=== PATIENT | female | born 2000 ===

== ENCOUNTER 2021-05-03 08:32 | Emergency (ER) | payer MEDICAID, SELFPAY ==
[2021-05-03 08:50] VITALS: BP 103/62; PULSE 67; RESP 17; TEMP 36.8; O2SAT 100; BMI 19.1
--- NOTE | 2021-05-03 08:52 | ED_ITS ---
HPI - General Adult General Chief complaint: Ear Problems Stated complaint: ear pain Time Seen by Provider: 05/03/21 08:35 Source: patient Mode of arrival: ambulatory Limitations: no limitations History of Present Illness HPI narrative: Patient comes emergency room complaining of left-sided ear pain and right ear itching. Symptoms have been ongoing for 1 week. Patient denies fever chills, no sore throat, no runny nose. Patient states 2 weeks ago she went to [place] Related Data Previous Rx's Medication Instructions Recorded acetic acid 3 drp OTIC (EAR) LEFT Q6H #15 ml 05/03/21 Allergies Allergy/AdvReac Type Severity Reaction Status Date / Time No Known Allergies Allergy Verified 05/03/21 08:54 [No Known Allergies*] Review of Systems Review of Systems: Constitutional : No Weight loss, No Fever, No Chills, No Night Sweats, No Fatigue, No Malaise ENT/Mouth : No Hearing loss, complaining of left-sided ear pain and right-sided ear itchiness, No Nasal Congestion, No Sinus Pain, No Hoarseness, No sore throat, No Rhinorrhea, No Swallowing Difficulty Eyes: No Eye Pain, No Swelling, No Redness, No Foreign Body, No Discharge, No Vision Changes Cardiovascular : No Chest Pain, No SOB, No Dyspnea on Exertion, No Orthopnea, No Edema, No Palpitations Respiratory : No Cough, No Sputum, No Wheezing, No Smoke Exposure, No Dyspnea Gastrointestinal : No Nausea, No Vomiting, No Diarrhea, No Constipation, No abdominal Pain, No Hematochezia, No Melena Genitourinary : no irregular bleeding, No Dysuria, No Urinary Frequency, No Hematuria, No Urinary Incontinence, No Urgency, No Flank Pain, No Urinary Flow Changes, No Hesitancy Musculoskeletal : No joint pain, No Myalgias, No Joint Swelling Skin : No Skin Lesions, No rash Neuro : No Weakness, No Numbness, No Paresthesias, No Loss of Consciousness, No Dizziness, No Headache Psych : No Anxiety/Panic, No Depression, No SI/HI/AH/VH, No Social Issues, Heme/Lymph: No Bruising, No Bleeding,No Lymphadenopathy Endocrine : No Polyuria, No Polydipsia, No Temperature Intolerance PMFSH Past Medical History Medical History No known health problems Social History Social History Advance Directives: No Advance Directives Information Provided: No Patient : No Physical Exam Vital Signs: Vital Signs: Last Vital Signs Temp 98.2 F 05/03/21 08:50 Pulse 67 05/03/21 08:50 Resp 17 05/03/21 08:50 BP 103/62 05/03/21 08:50 Pulse Ox 100 05/03/21 08:50 Body Mass Index 19.1 Appearance: Alert. Oriented X3. No acute distress. Eyes: Pupils equal, round and reactive to light. ENT: Pharynx normal. The tympanic membranes look within normal limits, the right ear does not seem infected, for the left ear, no mastoid bone tenderness Neck: Normal inspection. Neck supple. No lymph nodes noted. No crepitus CVS: Normal heart rate and rhythm. Pulses normal. Normal S1 and S2 Respiratory: No respiratory distress. Breath sounds normal. No Wheezing. No rales Abdomen: Soft and nontender. No rigidity. No distention. good BS x4 Skin: Skin warm and dry. Normal skin color. Normal skin turgor. Extremities: No lower extremity edema. No lower extremity edema. No Lacerations. No Rash Neuro: Oriented X 3. No motor deficit. No sensory deficit. Moving all extermities. No slurred speech. Course Course Course Narrative: I discussed the physical exam with the patient, it is possible that she may be at the beginning of otitis, at this time, I do not consider that oral antibiotic is necessary. Discussed with the patient that if she develops any worsening symptoms, to return to the emergency room. At this time, I sent to the patient's pharmacy a prescription for acetic acid Discharge Plan Discharge Clinical Impression: Acute ear pain Qualifiers: Laterality: left Qualified Code(s): H92.02 - Otalgia, left ear Patient Disposition: Home, Self-Care Instructions: Earache (ED) Additional Instructions: Please follow-up with your primary care physician tomorrow. If you have any worsening or new symptoms, please return to the emergency room or call 911 Prescriptions: New acetic acid 2 % solution 3 drp otic (ear) left Q6H Qty: 15 RF: 0
== END 2021-05-03 09:05 | disposition home or self-care (01) ==
PROVIDERS: Emergency Provider Emergency Medicine; PCP Pediatrics
DX: H92.02 Otalgia, left ear (principal)
CPT/HCPCS: 99283

== ENCOUNTER 2021-08-07 11:12 | Outpatient (REF) | payer MEDICAID, SELFPAY ==
[2021-08-07 12:14] LABS: COVID-19 Test Positive (Negative)
== END 2021-08-07 11:13 | disposition home or self-care (01) ==
LOC: HO.LAB 11:12
PROVIDERS: Visit Provider Internal Medicine
DX: Z20.822 Contact with and (suspected) exposure to COVID-19 (principal)
CPT/HCPCS: 36415; 87635; C9803

== ENCOUNTER 2021-08-20 08:40 | Outpatient (REF) | payer MEDICAID, SELFPAY | END 2021-08-20 08:41 | disposition home or self-care (01) | LOC: HO.LAB 08:40 | PROVIDERS: Visit Provider Internal Medicine | DX: Z20.822 Contact with and (suspected) exposure to COVID-19 (principal) | CPT/HCPCS: C9803; U0003; U0005 ==

== ENCOUNTER 2022-02-15 12:49 | Emergency (ER) | payer MEDICAID, SELFPAY ==
[2022-02-15 13:04] VITALS: BP 106/71; PULSE 57; RESP 16; TEMP 36.9; O2SAT 100; BMI 18.1
[2022-02-15 13:44] VITALS: BP 109/68; PULSE 64; RESP 18; TEMP 36.7; O2SAT 100
[2022-02-15 14:26] LABS: MANUAL DIFF FLAG NO
[2022-02-15 14:28] LABS: Basophils Percent Auto 0.5 % (0-2); Eosinophils Percent Auto 0.5 % (0-4); Hematocrit 42.9 % (37.0-47.0); Imm Gran Abs Auto 0.05 X10*3/uL (0.00-0.03); Imm Gran Pct Auto 0.6 % (0.0-0.4); Lymphocytes Absolute Auto 2.4 X10*3/uL (1.2-4.9); Lymphocytes Percent Auto 31.2 % (20-40); Mean Corpuscular HGB Conc 32.6 g/dl (31.0-35.0); Mean Corpuscular Hemoglobin 28.5 pg (27.0-33.0); Mean Corpuscular Volume 87.2 fL (80.0-98.0); Mean Platelet Volume 10.2 fL (9.4-12.3); Monocytes Absolute Auto 0.6 X10*3/uL (0.1-1.2); Neutrophils Absolute Auto 4.7 x10*3/uL (2.0-8.3); Neutrophils Percent Auto 60.2 % (45-73); Platelet Count 226 X10*3/uL (160-400); Red Blood Count 4.92 X10*6/uL (4.20-5.50); Red Cell Distribution Width 12.2 % (11.0-16.0); White Blood Count 7.8 X10*3/uL (4.8-10.8)
--- NOTE | 2022-02-15 14:28 | ED.HA ---
HPI - Headache General Chief Complaint: Headache Stated Complaint: migraine Time Seen by Provider: 02/15/22 13:35 Source: patient Mode of arrival: ambulatory Limitations: language barrier (Cymro-Speaking) History of Present Illness MD elicited complaint: headache and migraine Pertinent past history: migraines Onset (ago): day(s) (2) Onset description: gradually and other (while at work) Location: occipital Severity: moderate Pain scale (0-10): 8 Quality & Timing: aching, constant and similar to previous headaches Exacerbating factors: none Relieving factors: nothing Context: other (while at work) Associated symptoms: nausea and other (neck pain bilaterally ) Treatments prior to arrival: none Related Data Previous Rx's Medication Instructions Recorded acetic acid 2 % ear solution 3 drp OTIC (EAR) LEFT Q6H #15 ml 05/03/21 [id number]-doyhrblu 1 cap PO Q8H PRN #14 cap 02/15/22 50 mg-300 mg-40 mg capsule (Fioricet) ondansetron 4 mg disintegrating 4 mg PO Q6H #14 tab 02/15/22 tablet Allergies Allergy/AdvReac Type Severity Reaction Status Date / Time No Known Allergies Allergy Verified 05/03/21 08:54 [No Known Allergies*] Review of Systems Review of Systems: Constitutional : No changes in activity, No lethargy, No recent prior head injury, No agitation, No increased fussiness ENT/Mouth : No Ear Pain, No Nasal discharge/drainage Eyes: No Eye Pain, No Swelling, No Redness, No Foreign Body, No Vision Changes Cardiovascular : No Chest Pain, No SOB Respiratory : No Cough Gastrointestinal : + Nausea, No Vomiting, No abdominal Pain Genitourinary : No Dysuria, No Urinary Frequency, No Urinary Incontinence, No Urgency, No Flank Pain Musculoskeletal : + neck pain bilaterally, No joint pain, No neck stiffness, No back pain/injury Skin : No lacerations Neuro : + Headache, No unsteady gait, No Paresthesias, No Loss of Consciousness, No altered mental status, No dizziness Denies past medical history of HIV, recent trauma, coagulopathy, recent spinal/ epidural procedure, new medication, URI symptoms, close contacts with similar symptoms, tick bite, or known CO2 exposure. Yes all other systems are reviewed and are negative PMFSH Past Medical History Attestation statement: The following information was validated with the patient. Medical History No known health problems Social History Social History Alcohol intake: never Patient Tobacco Use Status: Never used Tobacco Smoked in Last 30 Days: No Advance Directives: No Advance Directives Information Provided: No Patient : No Physical Exam Vital Signs: Vital Signs: Last Vital Signs Temp 97.7 F 02/15/22 15:56 Pulse 54 02/15/22 15:56 Resp 14 02/15/22 15:56 BP 107/62 02/15/22 15:56 Pulse Ox 100 02/15/22 13:44 BMI result Body Mass Index 18.1 Vital signs have been reviewed as normal and appeared to be correct. Blood pressure normal. Heart rate normal. Respiration rate normal. Temperature normal. Oxygen saturation normal. Appearance: Alert. Oriented X3. No acute distress. Head: Normal external exam. Normocephalic. Atraumatic. Able to rotate head bilaterally. Patient does not have any temporal artery tenderness. Eyes: PERRLA. EOMI. No nystagmus noted. Conjunctiva and sclera normal. Eyelids normal. Corneal reflex normal. ENT: EAC normal. TM's Normal. Hearing normal. Pharynx normal. Uvula midline. tongue midline. Moist mucous membranes. No trismus noted. No drooling noted. No muffled voice noted. Neck: Normal inspection. Neck supple. FROM. No adenopathy. Thyroid Normal. Trachea midline. No meningeal signs. No neck mass noted. Tender to palpation of bilateral paracervical musculature and mid cervical tenderness. No step-offs or deformities noted. Patient neuro intact bilaterally and distally on all 4 extremities. Reflexes intact bilaterally and distally in all 4 extremities. No rashes/lesion/induration/fluctuance or signs of infection noted. No edema noted. CVS: Normal heart rate and rhythm. Heart sound normal. No murmurs noted. Pulses normal throughout. Respiratory: No respiratory distress. Painless inspiration. Breath sounds normal. No wheezes/rales/rhonchi noted. Chest nontender. No accessory muscle usage noted or decreased air movement noted. Back: Full range of motion noted. Skin: Skin warm and dry. Normal skin color. Normal skin turgor. No rashes/lesions/lacerations noted. Extremities: Extremities exhibit normal range of motion. Extremities nontender. Able to shrug shoulders bilaterally and keep up against resistance. Neuro: Oriented X 3. No motor deficit. No sensory deficit. Reflexes normal. Moving all extremities. No focal motor deficits. Cranial nerves II-XI intact bilaterally. Facial strength normal. Normal cognition. Speech normal. Gait normal. Strength 5/5 throughout. No pronator drift. No tremor noted. No fasciculations noted. Muscle tone normal throughout. No asterixis noted. [id number]-hl-[id number] test normal. Heel to key test normal. Tandem gait normal. Does not sway with eyes open. Romberg test negative. Rapid alternating movement upper extremity normal. Rapid alternating movement lower extremity normal. Hand drop from overhead-Mrs. face. No rigidity noted. Course Course Course Narrative: - Patient afebrile, resting comfortably in no distress. Non-toxic appearing. Patient denies any recent trauma/injury to head. Neurological exam shows no deficits. BP WNL. Denies any changes in vision. Patient ambulates without difficulty. Given the history, and physical - most likely diagnosis: Migraine JESUS. No imaging indicated. Will treat pain, and nausea. Will d/c with migraine medication and advised to follow - up with PCP. Patient demonstrated good understanding of signs and symptoms to return to ED for further testing should sx worsen. gradual onset JESUS with, nausea. Pt states classic of previous migraine HAs. SAH: unlikely given gradual onset and similar to previous episodes Intracranial bleed: unlikely given neg trauma, neg anticoagulation Meningitis: unlikely given pt afebrile, neg stiff neck, no immune compromise. Exam without signs of meningismus Temporal arteritis: Unlikely given Neg jaw claudication, no temporal tenderness or nodularity on exam. Cerebral venous thrombosis: unlikely given no h/o hypercoaguable state, no chronic head/neck infection. MDM - Headache Medical Records Attestation: I reviewed the patient's medical records. Lab Data Attestation: I reviewed the patient's lab results. Result diagrams: 02/15/22 14:21 02/15/22 14:21 Labs: Lab Results 02/15/22 02/15/22 02/15/22 Range/Units 14:21 14:21 14:21 WBC 7.8 (4.8-10.8) X10*3/uL RBC 4.92 (4.20-5.50) X10*6/uL Hgb 14.0 (12.0-16.0) g/dl Hct 42.9 (37.0-47.0) % MCV 87.2 (80.0-98.0) fL MCH 28.5 (27.0-33.0) pg MCHC 32.6 (31.0-35.0) g/dl RDW 12.2 (11.0-16.0) % Plt Count 226 (160-400) X10*3/uL MPV 10.2 (9.4-12.3) fL Immature Gran % (Auto) 0.6 H (0.0-0.4) % Neut % (Auto) 60.2 (45-73) % Lymph % (Auto) 31.2 (20-40) % [place] % (Auto) 7.0 (2-11) % Eos % (Auto) 0.5 (0-4) % Baso % (Auto) 0.5 (0-2) % Lymph # (Auto) 2.4 (1.2-4.9) X10*3/uL [place] # (Auto) 0.6 (0.1-1.2) X10*3/uL Eos # (Auto) 0.0 (0.0-0.4) X10*3/uL Baso # (Auto) 0.0 (0.0-0.2) X10*3/uL Abs Immat Gran (auto) 0.05 H (0.00-0.03) X10*3/uL Absolute Neuts (auto) 4.7 (2.0-8.3) x10*3/uL Absolute Nucleated RBC 0.000 (0.0-0.012) X10*3/uL Nucleated RBC % (auto) 0.0 (0.0-0.2) /100WBC ESR 2 (0-20) MM/HR Sodium 140 (135-145) mmol/L Potassium 3.6 (3.3-5.1) mmol/L Chloride 107 (96-108) mmol/L Carbon Dioxide 26 (22-29) mmol/L Anion Gap 11 L (12-20) BUN 8 L (9-16) mg/dL Creatinine 0.74 (0.5-1.4) mg/dL Estim Creat Clear Calc 77.4 Estimated GFR > 60 Random Glucose 82 (60-115) mg/dL Calcium 9.6 (8.4-10.2) mg/dL Magnesium 2.2 (1.6-2.6) mg/dL Total Bilirubin 0.9 (0.0-1.0) mg/dL AST 17 (5-31) U/L ALT 10 (0-31) U/L Alkaline Phosphatase 49 (39-117) U/L C-Reactive Protein 0.09 (< or = 0.50) mg/dL Total Protein 6.9 (6.5-8.0) g/dL Albumin 4.3 (3.5-5.0) g/dL TSH 0.49 (0.32-4.0) uIU/mL Beta HCG, Quant < 2 mIU/mL COVID-19 ([facility]) (Negative) COVID-19 Clin Com 02/15/22 Range/Units 14:21 WBC (4.8-10.8) X10*3/uL RBC (4.20-5.50) X10*6/uL Hgb (12.0-16.0) g/dl Hct (37.0-47.0) % MCV (80.0-98.0) fL MCH (27.0-33.0) pg MCHC (31.0-35.0) g/dl RDW (11.0-16.0) % Plt Count (160-400) X10*3/uL MPV (9.4-12.3) fL Immature Gran % (Auto) (0.0-0.4) % Neut % (Auto) (45-73) % Lymph % (Auto) (20-40) % [place] % (Auto) (2-11) % Eos % (Auto) (0-4) % Baso % (Auto) (0-2) % Lymph # (Auto) (1.2-4.9) X10*3/uL [place] # (Auto) (0.1-1.2) X10*3/uL Eos # (Auto) (0.0-0.4) X10*3/uL Baso # (Auto) (0.0-0.2) X10*3/uL Abs Immat Gran (auto) (0.00-0.03) X10*3/uL Absolute Neuts (auto) (2.0-8.3) x10*3/uL Absolute Nucleated RBC (0.0-0.012) X10*3/uL Nucleated RBC % (auto) (0.0-0.2) /100WBC ESR (0-20) MM/HR Sodium (135-145) mmol/L Potassium (3.3-5.1) mmol/L Chloride (96-108) mmol/L Carbon Dioxide (22-29) mmol/L Anion Gap (12-20) BUN (9-16) mg/dL Creatinine (0.5-1.4) mg/dL Estim Creat Clear Calc Estimated GFR Random Glucose (60-115) mg/dL Calcium (8.4-10.2) mg/dL Magnesium (1.6-2.6) mg/dL Total Bilirubin (0.0-1.0) mg/dL AST (5-31) U/L ALT (0-31) U/L Alkaline Phosphatase (39-117) U/L C-Reactive Protein (< or = 0.50) mg/dL Total Protein (6.5-8.0) g/dL Albumin (3.5-5.0) g/dL TSH (0.32-4.0) uIU/mL Beta HCG, Quant mIU/mL COVID-19 ([facility]) Negative (Negative) COVID-19 Clin Com See Note Discharge Plan Discharge Clinical Impression: Headache, migraine Patient Disposition: Home, Self-Care Instructions: Migraine Headache (ED) Prescriptions: New bgjztsndvb-kcjnqvlniqmiy-ngrz [Fioricet] 50-300-40 mg capsule 1 cap PO Q8H PRN (Reason: pain) Qty: 14 0RF ondansetron 4 mg tablet,disintegrating 4 mg PO Q6H Qty: 14 0RF No Action acetic acid 2 % solution 3 drp otic (ear) left Q6H Qty: 15 0RF Rx Instructions: apply to (cotton) wick; replace wick every 24 hours Referrals: Physician,Unknown J [Primary Care Provider] - 2 days (your tb ) Stand Alone Forms: Work/School Release Print Language: Cymro
[2022-02-15] MEDS: Metoclopramide HCl 10 MG/2 ML VIAL IVPUSH (14:39)
[2022-02-15] MEDS: diphenhydrAMINE HCL 50 MG/ML VIAL 25 MG IVPUSH (14:39)
[2022-02-15] MEDS: 0.9 % Sodium Chloride 1,000 ML 999 ML IVCONT (14:39)
[2022-02-15] MEDS: Ketorolac Tromethamine 30 MG/ML VIAL IVPUSH (14:39)
[2022-02-15 14:44] LABS: COVID-19 Test Negative (Negative); IDNOW Serial# 16C4AD1C
[2022-02-15] MEDS: dexAMETHasone sod phosphate 10 MG/ML VIAL IVPUSH (14:48)
[2022-02-15 14:58] LABS: Alanine Aminotransferase 10 U/L (0-31); Albumin Level 4.3 g/dL (3.5-5.0); Alkaline Phosphatase 49 U/L (39-117); Anion Gap 11 (12-20); Aspartate Amino Transferase 17 U/L (5-31); Bilirubin Total 0.9 mg/dL (0.0-1.0); C Reactive Protein 0.09 mg/dL (< or = 0.50); Calcium 9.6 mg/dL (8.4-10.2); Carbon Dioxide 26 mmol/L (22-29); Chloride 107 mmol/L (96-108); Creatinine Clr Calc Pharmacy 77.4; Estimated Glomerular Filt Rate > 60; Glucose Random 82 mg/dL (60-115); Magnesium 2.2 mg/dL (1.6-2.6); Potassium 3.6 mmol/L (3.3-5.1); Sodium 140 mmol/L (135-145); Total Protein 6.9 g/dL (6.5-8.0)
[2022-02-15 15:05] LABS: Erythrocyte Sedimentation Rate 2 MM/HR (0-20)
[2022-02-15 15:06] LABS: Blood Urea Nitrogen 8 mg/dL (9-16); HCG Quantitative < 2 mIU/mL
[2022-02-15 15:18] LABS: TSH reflex Free T4 0.49 uIU/mL (0.32-4.0)
[2022-02-15 15:56] VITALS: BP 107/62; PULSE 54; RESP 14; TEMP 36.5
== END 2022-02-15 16:54 | disposition home or self-care (01) ==
PROVIDERS: Physician Assistant Medical; Emergency Provider Emergency Medicine
DX: G43.909 Migraine, unspecified, not intractable, without status migrainosus (principal); M54.2 Cervicalgia; Z20.822 Contact with and (suspected) exposure to COVID-19
CPT/HCPCS: 36415; 80053; 83735; 84443; 84702; 85025; 85652; 86140; 87635; 96361; 96374; 96375; 99284; 99285; J1100; J1200; J1885; J2765

== ENCOUNTER 2023-03-30 10:23 | Emergency (ER) | payer MEDICAID, SELFPAY ==
--- NOTE | 2023-03-30 11:13 | ED_ITS ---
HPI - URI/Sore Throat General Chief Complaint: General Medical <Alysia Reyes NP - Last Filed: 03/30/23 11:15> Stated Complaint: Stuffy nose/Cough/Allergies <Alysia Reyes NP - Last Filed: 03/30/23 11:15> Time Seen by Provider: 03/30/23 11:27 <Alysia Reyes NP - Last Filed: 03/30/23 11:15> Source: patient <SNEHA Mccracken - Last Filed: 03/30/23 13:23> Mode of arrival: ambulatory <SNEHA Mccracken Last Filed: 03/30/23 13:23> Limitations: no limitations <SNEHA Mccracken Last Filed: 03/30/23 13:23> History of Present Illness HPI Narrative: Patient is a 22 year old assigned female at with no reported medical history presenting to the emergency department today with a cough and congestion. Patient states that she has had a cough and congestion for almost 2 weeks now that is not getting better even with allergy treatments. Patient denies any dizziness, lightheadedness, abdominal pain, nausea, vomiting, fever, chills, blurry vision, double vision, loss of vision, chest pain, difficulty breathing, shortness of breath, back pain, night sweats, pain with urination, increased urinary frequency, increased urinary urgency, blood in her urine or stool, syncope or a near syncopal episode, recent trauma or falls, bowel incontinence, bladder incontinence, bowel retention, bladder retention, or any other complaints at this time. <SNEHA Mccracken - Last Filed: 03/30/23 13:23> MD elicited complaint: cough and nasal congestion <SNEHA Mccracken Last Filed: 03/30/23 13:23> Onset (ago): week(s) <SNEHA Mccracken Last Filed: 03/30/23 13:23> Consistency: constant <SNEHA Mccracken Last Filed: 03/30/23 13:23> Severity: mild <SNEHA Mccracken Last Filed: 03/30/23 13:23> Associated symptoms: cough <SNEHA Mccracken Last Filed: 03/30/23 13:23> Related Data Home Medications: Previous Rx's Medication Instructions Recorded acetic acid 2 % ear solution 3 drp otic (ear) left Q6H #15 mL 05/03/21 yxkogbbzaa-uhnnqocpwpdnc-eojhnxvr 1 cap PO Q8H PRN pain #14 caps 02/15/22 50 mg-300 mg-40 mg capsule (Fioricet) ondansetron 4 mg disintegrating 4 mg PO Q6H Nausea and vomiting 02/15/22 tablet #14 tabs doxycycline hyclate 100 mg tablet 100 mg PO BID 7 days #14 tabs 03/30/23 prednisone 20 mg tablet 20 mg PO DAILY 7 days #7 tabs 03/30/23 <Alysia Reyes NP - Last Filed: 03/30/23 11:15> Allergies/Adverse Reactions: Allergies Allergy/AdvReac Type Severity Reaction Status Date / Time No Known Allergies Allergy Verified 03/30/23 11:14 [No Known Allergies*] <Alysia Reyes NP - Last Filed: 03/30/23 11:15> Review of Systems Constitutional: Constitutional: Reports no additional constitutional complaints, Denies chills, Denies fever(s) and Denies night sweats <SNEHA Mccracken Last Filed: 03/30/23 13:23> Eyes: Eyes: Reports no additional eye complaints, Denies blurry vision, Denies change in vision, Denies diplopia, Denies eye discharge, Denies loss of vision and Denies eye pain <SNEHA Mccracken Last Filed: 03/30/23 13:23> ENT: Denies dizziness and Reports nasal congestion <SNEHA Mccracken Last Filed: 03/30/23 13:23> Cardiovascular: Cardiovascular: Reports no additional cardiovascular complaints, Denies chest pain, Denies lightheadedness, Denies Loss of Consciousness and Denies dyspnea <SNEHA Mccracken Last Filed: 03/30/23 13:23> Respiratory: Respiratory: Reports no additional respiratory complaints, Reports cough and Denies dyspnea <SNEHA Mccracken Last Filed: 03/30/23 13:23> Gastrointestinal: Gastrointestinal: Reports no additional gastrointestinal complaints, Denies abdominal pain, Denies melena, Denies hematochezia, Denies change in bowel habits and Denies change in stool character <SNEHA Mccracken - Last Filed: 03/30/23 13:23> Genitourinary: Genitourinary: Denies hematuria, Denies urinary frequency, Denies dysuria, Denies urinary incontinence, Denies urinary hesitancy and Denies urinary urgency <SNEHA Mccracken - Last Filed: 03/30/23 13:23> Musculoskeletal: Musculoskeletal: Reports no additional musculoskeletal complaints, Denies numbness and Denies tingling <SNEHA Mccracken - Last Filed: 03/30/23 13:23> Neurologic: Denies dizziness, Denies loss of vision, Denies numbness and Denies tingling <SNEHA Mccracken - Last Filed: 03/30/23 13:23> Psychiatric: Psychiatric: Reports no additional psychiatric complaints <SNEHA Mccracken - Last Filed: 03/30/23 13:23> Endocrine: Endocrine: Reports no additional endocrine complaints <SNEHA Mccracken - Last Filed: 03/30/23 13:23> Hematologic/Lymphatic: Hematologic/Lymphatic: Reports no additional hematologic/lymphatic complaints <SNEHA Mccracken - Last Filed: 03/30/23 13:23> Allergic/Immunologic: Allergic/Immunologic: Reports no additional allergic/immunologic complaints <SNEHA Mccracken - Last Filed: 03/30/23 13:23> PMF Past Medical History Attestation statement: The following information was validated with the patient. <SNEHA Mccracken - Last Filed: 03/30/23 13:23> Source: old records reviewed and nursing notes reviewed <SNEHA Mccracken - Last Filed: 03/30/23 13:23> Medical History: Medical History No known health problems <Alysia Reyes NP - Last Filed: 03/30/23 11:15> Social History Social History: Social History Alcohol intake: never Patient Tobacco Use Status: Never used Tobacco Advance Directives: No Advance Directives Information Provided: Yes <Alysia Reyes NP - Last Filed: 03/30/23 11:15> Physical Exam Vital Signs: Vital Signs: Last Vital Signs Temp 98.0 F 03/30/23 11:14 Pulse 72 03/30/23 11:14 Resp 18 03/30/23 11:14 BP 123/77 03/30/23 11:14 Pulse Ox 99 03/30/23 11:14 O2 Del Method Room Air 03/30/23 11:14 BMI result Body Mass Index 20.6 <Alysia Reyes NP - Last Filed: 03/30/23 11:15> Vital Signs: Last Vital Signs Temp 98.0 F 03/30/23 11:14 Pulse 72 03/30/23 11:14 Resp 18 03/30/23 11:14 BP 123/77 03/30/23 11:14 Pulse Ox 99 03/30/23 11:14 O2 Del Method Room Air 03/30/23 11:14 BMI result Body Mass Index 20.6 <SNEHA Mccracken - Last Filed: 03/30/23 13:23> Const: General: cooperative, no acute distress, alert and awake <SNEHA Mccracken - Last Filed: 03/30/23 13:23> Nutritional Appearance: well nourished <SNEHA Mccracken - Last Filed: 03/30/23 13:23> Orientation/consciousness: patient oriented x3 <SNEHA Mccracken - Last Filed: 03/30/23 13:23> Limitations: no limitations <SNEHA Mccracken - Last Filed: 03/30/23 13:23> HEENT: Head: Yes normal to inspection and Yes atraumatic <SNEHA Mccracken - Last Filed: 03/30/23 13:23> Ears: hearing grossly normal bilaterally and external ears normal <SNEHA Mccracken - Last Filed: 03/30/23 13:23> General nose exam: Normal external nose present, no nasal discharge noted and no epistaxis <SNEHA Mccracken - Last Filed: 03/30/23 13:23> Face and sinus: Yes normal facial exam, No abrasion and No laceration <SNEHA Mccracken - Last Filed: 03/30/23 13:23> Mouth: Normal oral and palatal mucosa present, no drooling and no muffled voice <SNEHA Mccracken - Last Filed: 03/30/23 13:23> Eyes: General: appearance normal, both eyes and all related structures <Mary Russell PA - Last Filed: 03/30/23 13:23> Periorbital: periorbital findings normal <Mary Russell PA - Last Filed: 03/30/23 13:23> Eyelids: Yes eyelids normal <Mary Johnsonkatie PA - Last Filed: 03/30/23 13:23> Conjunctivae: conjunctivae normal <Mary Russell PA - Last Filed: 03/30/23 13:23> Pupils: Equal, round and reactive pupils present <Mary Johnsonkatie PA - Last Filed: 03/30/23 13:23> EOM: EOMs intact bilaterally <Mary Johnsonkatie PA - Last Filed: 03/30/23 13:23> Neck: Neck: Yes normal visual inspection, Yes full ROM and Yes no lymphadenopathy <Maryalexia Johnsonkatie [place] - Last Filed: 03/30/23 13:23> Chest: Chest palpation & inspection: normal inspection of the chest <Mary Johnsonkatie PA - Last Filed: 03/30/23 13:23> Resp: Effort & Inspection: normal respiratory effort and able to speak in complete sentences <Maryalexia Johnsonkatie PA - Last Filed: 03/30/23 13:23> Auscultation: clear to auscultation bilaterally <Mary Johnsonkatie PA - Last Filed: 03/30/23 13:23> Cardio: Rate: regular rate <Maryalexia Johnsonkatie PA - Last Filed: 03/30/23 13:23> Rhythm: regular rhythm <Mary Johnsonkatie PA - Last Filed: 03/30/23 13:23> GI: Inspection: Yes normal to inspection <Mary Johnsonkatie PA - Last Filed: 03/30/23 13:23> Neuro: General: patient oriented x3 and moves all extremities <Maryalexia Johnsonkatie PA - Last Filed: 03/30/23 13:23> Cranial nerves: Yes Equal, round and reactive pupils present <Mary Johnsonkatie PA - Last Filed: 03/30/23 13:23> Cognition (Neuro): normal cognition <Mary Drew PA - Last Filed: 03/30/23 13:23> Motor exam (neuro): 5/5 motor strength present throughout <Maryalexia JohnsonSNEHA wilson - Last Filed: 03/30/23 13:23> Sensory Exam: Normal double simultaneous stimulation for sensation <Maryalexia JohnsonSNEHA wilson - Last Filed: 03/30/23 13:23> Coordination: aziyhy-gf-adyk test normal <Maryalexia JohnsonSNEHA wilson - Last Filed: 03/30/23 13:23> Extrem: General: Yes normal to inspection, Yes full ROM and Yes capillary refill normal <Mary SNEHA Russell - Last Filed: 03/30/23 13:23> Psych: Appearance: grossly normal <SNEHA Mccracken - Last Filed: 03/30/23 13:23> Mental Status: mental status grossly normal <SNEHA Mccracken - Last Filed: 03/30/23 13:23> Affect: normal affect <SNEHA Mccracken - Last Filed: 03/30/23 13:23> Attitude: cooperative <SNEHA Mccracken - Last Filed: 03/30/23 13:23> Thought process: Normal thought process present <SNEHA Mccracken - Last Filed: 03/30/23 13:23> Thought content: Normal thought content present <SNEHA Mccracken - Last Filed: 03/30/23 13:23> Insight: Good insight present (Psych) <SNEHA Mccracken - Last Filed: 03/30/23 13:23> Course Course Course Narrative: This is a rapid medical exam. Deferred additional HPI, ROS, PE to primary provider. 22 yo female healthy here with 2 weeks of cough, congestion, sneezing, itchy eyes. VSS. Will check covid screen. <Alysia Reyes NP - Last Filed: 03/30/23 11:15> Medical Decision Making Medical Decision Making MDM Narrative: Patient is a 22 year old assigned female at with no reported medical history presenting to the emergency department today with nasal congestion and a cough. Patient's physical exam was unremarkable. Patient's COVID-19 swab was negative. I explained my physical exam findings as well as all test results to the patient. I answered all questions asked by the patient. Given the length of the patient's symptoms, will treat as if it is super imposed bacterial infection. I stressed the importance of the patient taking her medication as prescribed. I stressed the importance of the patient following up with her primary care provider. I stressed the importance of the patient returning to the emergency department immediately if her symptoms were to worsen or if she were to develop any dizziness, shortness of breath, difficulty breathing, chest pain, blurry vision, loss of vision, nausea, vomiting, abdominal pain, fever, chills, back pain, or any other complaints. Patient verbalized agreement and understanding with this treatment plan and discharge. <SNEHA Mccracken - Last Filed: 03/30/23 13:23> Differential Diagnosis Differential Diagnoses: The differential diagnosis associated with the presentation includes <SNEHA Mccracken - Last Filed: 03/30/23 13:23> URI <SNEHA Mccracken - Last Filed: 03/30/23 13:23> Lab Data MDM Lab Attestation statement: I reviewed the patient's lab results. <SNEHA Mccracken - Last Filed: 03/30/23 13:23> Labs: Lab Results 03/30/23 Range/Units 11:29 COVID-19 ([facility]) Negative (Negative) COVID-19 Clin Com See Note <Alysia Reyes NP - Last Filed: 03/30/23 11:15> Lab Results 03/30/23 Range/Units 11:29 COVID-19 ([facility]) Negative (Negative) COVID-19 Clin Com See Note <SNEHA Mccracken - Last Filed: 03/30/23 13:23> Discharge Plan Discharge Clinical Impression: Upper respiratory infection <Alysia Reyes NP - Last Filed: 03/30/23 11:15> Patient Disposition: Home, Self-Care <Alysia Reyes NP - Last Filed: 03/30/23 11:15> Instructions: Upper Respiratory Infection (DC) <Alysia Reyes NP - Last Filed: 03/30/23 11:15> Additional Instructions: Follow up with your primary care provider. Return to the emergency department immediately if your symptoms worsen or if you develop any dizziness, shortness of breath, difficulty breathing, chest pain, blurry vision, loss of vision, nausea, vomiting, abdominal pain, fever, chills, back pain, or any other complaints. <Alysia Reyes NP - Last Filed: 03/30/23 11:15> Prescriptions: New prednisone 20 mg tablet 20 mg PO DAILY 7 Days Qty: 7 0RF doxycycline hyclate 100 mg tablet 100 mg PO BID 7 Days Qty: 14 0RF No Action acetic acid 2 % solution 3 drp otic (ear) left Q6H Qty: 15 0RF Rx Instructions: apply to (cotton) wick; replace wick every 24 hours sitdegwucf-vkwjdqrqxhczm-wfhz [Fioricet] 50-300-40 mg capsule 1 cap PO Q8H PRN (Reason: pain) Qty: 14 0RF ondansetron 4 mg tablet,disintegrating 4 mg PO Q6H Qty: 14 0RF <Alysia Reyes NP - Last Filed: 03/30/23 11:15> Referrals: Ashanti Manrique MD [Primary Care Provider] - <Alysia Reyes NP - Last Filed: 03/30/23 11:15> Stand Alone Forms: Work/School Release <Alysia Reyes NP - Last Filed: 03/30/23 11:15> Interventions: ED Discharge Assessment Last Done: 03/30/23 12:06 <Alysia Reyes NP - Last Filed: 03/30/23 11:15> Discharge Date/Time: 03/30/23 12:07 <Alysia Reyes NP - Last Filed: 03/30/23 11:15> Print Language: Turkmen <Alysia Reyes NP - Last Filed: 03/30/23 11:15>
[2023-03-30 11:14] VITALS: BP 123/77; PULSE 72; RESP 18; TEMP 36.7; O2SAT 99; BMI 20.6
[2023-03-30 11:56] LABS: COVID-19 Test Negative (Negative); IDNOW Serial# 08D9AD1C
== END 2023-03-30 12:07 | disposition home or self-care (01) ==
PROVIDERS: Nurse Practitioner Family; Emergency Provider Student in an Organized Health Care Education/Training Program; PCP Internal Medicine
DX: J06.9 Acute upper respiratory infection, unspecified (principal); R05.9 Cough, unspecified; Z20.822 Contact with and (suspected) exposure to COVID-19; Z20.828 Contact with and (suspected) exposure to other viral communicable diseases; Z79.899 Other long term (current) drug therapy
CPT/HCPCS: 87635; 99282; 99283

== ENCOUNTER 2023-07-16 21:59 | Emergency (ER) | payer MEDICAID, SELFPAY ==
[2023-07-16 22:03] VITALS: BP 103/69; PULSE 67; RESP 18; TEMP 37.1; O2SAT 99; BMI 19.9
--- NOTE | 2023-07-16 23:11 | ED_ITS ---
HPI - Skin/Abscess/Foreign Bdy General Chief complaint: Skin/Abscess/Foreign Body Stated complaint: qtip stuck in right ear Time Seen by Provider: 07/16/23 22:56 Source: patient Mode of arrival: ambulatory Limitations: no limitations History of Present Illness HPI narrative: Patient is a 23-year-old female presents emergency department for evaluation of the cotton tip of the Q-tip stuck in the right ear. She reports prior to arrival she was cleaning her ear when she removed it a cotton tip was absent and she began developing pain to the right ear. She has a muffled hearing. Related Data Previous Rx's Medication Instructions Recorded acetic acid 2 % ear solution 3 drp otic (ear) left Q6H #15 mL 05/03/21 vnsvnclvcg-tqemlievobpty-lthzbdoz 1 cap PO Q8H PRN pain #14 caps 02/15/22 50 mg-300 mg-40 mg capsule (Fioricet) ondansetron 4 mg disintegrating 4 mg PO Q6H Nausea and vomiting 02/15/22 tablet #14 tabs doxycycline hyclate 100 mg tablet 100 mg PO BID 7 days #14 tabs 03/30/23 prednisone 20 mg tablet 20 mg PO DAILY 7 days #7 tabs 03/30/23 Allergies Allergy/AdvReac Type Severity Reaction Status Date / Time No Known Allergies Allergy Verified 07/16/23 22:06 [No Known Allergies*] Review of Systems Review of Systems: Yes all other systems are reviewed and are negative [facility] Past Medical History Attestation statement: The following information was validated with the patient. Medical History No known health problems Social History Social History Alcohol intake: never Patient Tobacco Use Status: Never used Tobacco Smoked in Last 30 Days: No Use of substances other than those prescribed or required for medical reasons: No Advance Directives: No Advance Directives Information Provided: No Patient : No Physical Exam Vital Signs: Vital Signs: Last Vital Signs Temp 98.8 F 07/16/23 22:03 Pulse 67 07/16/23 22:03 Resp 18 07/16/23 22:03 BP 103/69 07/16/23 22:03 Pulse Ox 99 07/16/23 22:03 O2 Del Method Room Air 07/16/23 22:03 BMI result Body Mass Index 19.9 Appearance: Alert.?Oriented to person, place and time. No acute distress.?Normal affect. ENT: Cotton tip present to the right external canal, upon removal TM was intact, no erythema Neck: Normal inspection.? Neck supple.?? CVS: Heart sounds normal. Normal heart rate and rhythm.? Pulses normal.?? Respiratory: No respiratory distress.? Lung sounds clear to auscultation bilaterally? Skin: Skin warm and dry.? Normal skin color.? Medical Decision Making Medical Decision Making [facility] Narrative: Patient is a 23-year-old female presents emergency department for evaluation of a foreign body to the right ear canal, cotton-tipped of Q-tip was able to be successfully removed with alligator forceps, tolerated procedure well, upon evaluation after removal TM was intact and without any signs of infection or cerumen impaction. Patient advised against inserting anything into the canal such as Q-tips. Stable for discharge. Differential Diagnosis Differential Diagnoses: The differential diagnosis associated with the presentation includes (Foreign body of the auditory canal, TM rupture, acute otitis media, otitis externa, cerumen impaction) Prescription Management I considered prescription management with: Pain Medication (Acetaminophen/ibup rofen) Discharge Plan Discharge Clinical Impression: Acute foreign body of ear canal Patient Disposition: Home, Self-Care Additional Instructions: As discussed, refrain from inserting anything into the ear canal such as Q-tips as this may increase the risk of rupture of your ear drum. Today the cotton tip was able to successfully be removed from your right ear canal. Prescriptions: No Action acetic acid 2 % solution 3 drp otic (ear) left Q6H Qty: 15 0RF Rx Instructions: apply to (cotton) wick; replace wick every 24 hours staxznmcht-xxhvgptjpqhnh-ivto [Fioricet] 50-300-40 mg capsule 1 cap PO Q8H PRN (Reason: pain) Qty: 14 0RF ondansetron 4 mg tablet,disintegrating 4 mg PO Q6H Qty: 14 0RF prednisone 20 mg tablet 20 mg PO DAILY 7 Days Qty: 7 0RF doxycycline hyclate 100 mg tablet 100 mg PO BID 7 Days Qty: 14 0RF Referrals: Ashanti Manrique MD [Primary Care Provider] - Stand Alone Forms: Work/School Release
== END 2023-07-16 23:28 | disposition home or self-care (01) ==
PROVIDERS: Emergency Provider Emergency Medicine; PCP Internal Medicine
DX: T16.1XXA Foreign body in right ear, initial encounter (principal); X58.XXXA Exposure to other specified factors, initial encounter; H92.01 Otalgia, right ear
CPT/HCPCS: 69200; 99283; 99284

== ENCOUNTER 2024-02-01 10:20 | Outpatient (REF) | payer MEDICAID, SELFPAY ==
[2024-02-01 11:12] LABS: MANUAL DIFF FLAG NO
[2024-02-01 11:33] LABS: Basophils Percent Auto 0.5 % (0-2); Eosinophils Absolute Auto 0.1 X10*3/uL (0.0-0.4); Eosinophils Percent Auto 1.9 % (0-4); Hematocrit 43.1 % (37.0-47.0); Hemoglobin 14.3 g/dl (12.0-16.0); Imm Gran Abs Auto 0.01 X10*3/uL (0.00-0.03); Imm Gran Pct Auto 0.2 % (0.0-0.4); Lymphocytes Percent Auto 34.2 % (20-40); Mean Corpuscular HGB Conc 33.2 g/dl (31.0-35.0); Mean Corpuscular Hemoglobin 29.2 pg (27.0-33.0); Mean Platelet Volume 10.7 fL (9.4-12.3); Monocytes Absolute Auto 0.5 X10*3/uL (0.1-1.2); Monocytes Percent Auto 8.9 % (2-11); Neutrophils Absolute Auto 3.1 x10*3/uL (2.0-8.3); Neutrophils Percent Auto 54.3 % (45-73); Platelet Count 229 X10*3/uL (160-400); Red Cell Distribution Width 11.9 % (11.0-16.0); White Blood Count 5.7 X10*3/uL (4.8-10.8)
[2024-02-01 14:00] LABS: Alanine Aminotransferase 12 U/L (0-31); Alkaline Phosphatase 53 U/L (39-117); Anion Gap 11 (12-20); Aspartate Amino Transferase 16 U/L (5-31); Bilirubin Total 0.4 mg/dL (0.0-1.0); Blood Urea Nitrogen 10 mg/dL (9-16); Calcium 8.9 mg/dL (8.4-10.2); Carbon Dioxide 24 mmol/L (22-29); Chloride 108 mmol/L (96-108); Estimated Glomerular Filt Rate > 60; Glucose Random 71 mg/dL (60-115); Potassium 4.1 mmol/L (3.3-5.1); Sodium 139 mmol/L (135-145); Total Protein 6.7 g/dL (6.5-8.0)
[2024-02-01 14:23] LABS: Free T4 (Free Thyroxine) 0.94 ng/dL (0.71-1.85); HCG Quantitative < 2 mIU/mL; Thyroid Stimulating Hormone 0.86 uIU/mL (0.32-4.0)
[2024-02-02 08:19] LABS: HBS Num1 1.83 mIU/mL (0-7.99); HBc Num1 0.06 S/CO (0.00-0.79); HBsAGNum1 0.54 S/CO (0.00-0.99); HIV AB/AG Nonreactive (Nonreactive); HIV Num 1 0.06 S/CO (0.00-0.99); Hepatitis B Core Antibody Nonreactive (Nonreactive); Hepatitis B Surface Antigen Negative (Negative); ~HepC Num1 0.17 S/CO (0.00-0.79); ~Hepatitis B Surface Antibody NONREACTIVE (Nonreactive); ~Hepatitis C Antibody Nonreactive (Nonreactive)
[2024-02-02 08:41] LABS: Syphilis Screen Nonreactive (Nonreactive)
[2024-02-02 21:58] LABS: Follicle Stimulating Hormone 2.8 mIU/mL; Prolactin 10.3 ng/mL
[2024-02-06 00:19] LABS: Estradiol Ultra Sensitive 205 pg/mL
== END 2024-02-01 10:21 | disposition home or self-care (01) ==
LOC: HO.HHCL 10:20
PROVIDERS: Visit Provider Family Medicine
DX: N91.5 Oligomenorrhea, unspecified (principal); Z11.3 Encounter for screening for infections with a predominantly sexual mode of transmission
CPT/HCPCS: 36415; 80053; 82670; 83001; 84146; 84439; 84443; 84702; 85025; 86704; 86706; 86780; 86803; 87340; 87389

== ENCOUNTER 2024-11-03 11:24 | Outpatient (REF) | payer SELFPAY ==
[2024-11-03 16:14] LABS: Appearance Urine Turbid; Color Urine Yellow; Glucose Urine UA Negative (Negative); Leukocyte Esterase Urine Small (1+) (Negative); Nitrite Urine Negative (Negative); PH 5.5 (5.0-9.0); Specific Gravity - Urine 1.025 (1.005-1.025); UMIC TRIGGER UA YES; Urine Blood Negative (Negative); Urine Ketones Negative (Negative); Urine Protein Negative (Neg-Trace)
[2024-11-03 16:18] LABS: Bacteria Urine None Seen (None Seen); Hyaline Casts Urine 0-2 /LPF (0-2); RBC Urine 0-2 /HPF (0-2)
[2024-11-08 17:38] LABS: Testosterone, Total 65 ng/dL (2-45)
== END 2024-11-03 11:25 | disposition home or self-care (01) ==
LOC: HO.HHCL 11:24
PROVIDERS: Visit Provider Advanced Practice Midwife
DX: N91.5 Oligomenorrhea, unspecified (principal); R39.9 Unspecified symptoms and signs involving the genitourinary system
CPT/HCPCS: 36415; 81001; 84403; 87086; 87147

== ENCOUNTER 2024-11-03 15:02 | Outpatient (REF) | payer SELFPAY | END 2024-11-03 15:03 | disposition home or self-care (01) | LOC: HO.HHCL 15:02 | PROVIDERS: Visit Provider Advanced Practice Midwife | DX: Z13.89 Encounter for screening for other disorder (principal) ==

== ENCOUNTER 2025-02-15 13:17 | Outpatient (REF) | payer OTHER, SELFPAY ==
--- NOTE | ~2025-02-15 | US_ITS ---
EXAMINATION: US PELVIS HISTORY: oligomenorrhea COMPARISON: There are no prior studies for comparison. TECHNIQUE: Transabdominal real-time 2D berg-scale ultrasound was performed. The patient declined endovaginal examination. FINDINGS: Uterus: The uterus is normal in size, measuring 7.3 x 3.1 x 3.6 cm. Myometrium has a normal echotexture. No fibroids are identified. Endometrium: The endometrial stripe measures 5 mm in thickness. Right ovary: The right ovary measures 2.7 x 2.2 x 1.9 cm. The right ovary is normal in size and echotexture. Left ovary: The left ovary measures 3.2 x 1.8 x 2.4 cm. The left ovary is normal in size and echotexture. Pelvic fluid: none. US/US pelvic complete IMPRESSION: Unremarkable pelvic ultrasound. Electronically signed by: Antony Pete MD 02/15/2025 02:11 PM EDT
--- OUTSIDE RECORDS SUMMARY | 2025-02-15 15:54 | XMS_ITS | Clinical Summary ---
Author Organization [employer] Address [address] [facility] 7t [place] [address] Care Team Providers Care Ammonia Print Operator Name Role Phone Keyona Orozco MD Primary Care Provider [phone] Allergies No known active allergies Medications cetirizine (ZyrTEC) 10 MG tablet TAKE 1 TABLET BY MOUTH EVERY MORNING NEEDED 90 tablet 1 4 Active cromolyn (Nasachrom) 5.2 MG/ACT nasal spray Administer 1 spray into each nostril 4 times daily. 26 mL 2 4 Active ketotifen (Zaditor) 0.025 % ophthalmic solution Administer 1 drop into both eyes 2 times daily. 10 mL 1 4 Active desogestrel-eth inyl estradiol (Apri) 0.15-30 MG-MCG tablet Take 1 tablet by mouth Once per day. 28 tablet 11 4 11/03/20 25 Active amoxicillin (Amoxil) 500 MG capsule 1 tablet every 8 hours x 7 days 21 capsule 5 Active Active Problems Problem Noted Date Diagnosed Date Allergic rhinitis 02/01/2024 Assessment & Plan (02/08/2024 10:05 AM EDT): - continue cetirizine and cromolyn nasal spray - apply ketotifen gtt for allergic conjunctivitis Oligomenorrhea 06/28/2018 Assessment & Plan (02/08/2024 9:08 AM EDT): - check lab - refer to ANIMAL TRAINER SUPERVISOR - discussed about using hormonal contraception to regulate her period - schedule PAP Underweight 09/11/2016 Assessment & Plan (02/08/2024 9:09 AM EDT): - likely thin-built, genetically / hereditary, and not pathologic - check lab Resolved Problems Problem Noted Date Diagnosed Date Resolved Date Acute foreign body of ear canal 01/28/2024 02/01/2024 Acne 02/23/2023 02/01/2024 Encounters Date Type Department Care Team Description 02/10/2025 Telephone [facility] [place] [address] Keyona Orozco MD 02/09/2025 Telephone [facility] [address] [facility] [place] [address] Keyona Orozco MD Referral 01/17/2025 1:00 PM EST Office Visit [facility] [place] [address] Parisa Cortez CNM Oligomenorrhea, unspecified type (Primary Dx) 01/17/2025 Travel 12/28/2024 Orders Only [facility] [place] [address] Parisa Cortez CNM Oligomenorrhea, unspecified type (Primary Dx) 12/22/2024 Orders Only [facility] [place] [address] Parisa Cortez CNM 12/21/2024 Telephone [facility] [address] [facility] [place] [address] Keyona Orozco MD 11/29/[address] [place] [address] Mahi Ghosh, BASHIR Results from Last 3 Months Immunizations Name Administration Dates Next Due DTaP 06/20/2004,07/06/2001,01/08/2001 DTaP / HiB / IPV 2000 DTaP, 5 pertussis antigens 2000 HPV 9-Valent 09/11/2016,09/08/2011 HPV, Quadrivalent 12/10/2015,10/23/2014 Hep A, ped/adol, 2 dose 10/23/2014,09/08/2011 Hep B, Adolescent or Pediatric 01/01/2001,1999,2000 Hib (PRP-OMP) 08/29/2002,01/01/2001,2000 Hib (PRP-T) 2000 IPV 06/20/2004, 1,2000,08/17 Influenza injectable quadriv alent preservative free 11/29/2020,08/08/2019,12/28/2017,09/11 MMR 06/20/2004,07/06/2001 Meningococcal MCV4P ACYW-135 09/11/2016,09/08/20 11 Pneumococcal Conjugate PCV 13 12/10/2015 TD (adult), 2 Lf tetanus tox oid, preservative free, adsorbed 11/08/2011 Tdap 02/01/2024,09/08/2011 Varicella 09/08/2011,07/06/2001 Social History Tobacco Use Types Packs/Day Years Used Date Smoking Tobacco: Never Smokeless Tobacco: Never Tobacco Cessation:Counseling Given: Not Answered Alcohol Use Standard Drinks/Week Comments Never 0 (1 standard drink = 0.6 oz pur e alcohol) Depression Answer Date Recorded Patient Health Questionnaire-9 Score 2 02/01/2024 Patient Health Questionnaire-9 Score 2 02/01/2024 Last PHQ-9: Questionnaire Data Not on file 0 02/01/2024 Housing Stability Answer Date Recorded What is your housing situation today? I have casey pruitt 01/21/[address] you li ve. Do you have problems with any of the following? None of the above 01/21/2024 Food Insecurity Answer Date Recorded Within the past 12 months, y ou worried that your food would run out before you got money to buy more: Sometimes True 2023 Within the past 12 months,th e food you bought just didn't last and you didn't have enough money to get more: Sometimes True 01/21/2024 Transportation Answer Date Recorded In the past 12 months, has l ack of transportation kept you from medical appts, meetings, work or from getting things needed for daily living? No 01/21/2024 Utilities Answer Date Recorded In the past 12 months, has t he electric, gas, oil or water company threatened to shut off services in your home? No 01/21/2024 Depression Answer Date Recorded Patient Health Questionnaire-2 Score 1 02/01/2024 Comments No Sex and Gender Information Value Date Recorded Sex Assigned at Female 09/15/2022 10:30 AM EDT Legal Sex Female 10:30 AM EDT Gender Identity Female 09/15/2022 10:30 AM EDT Sexual Orientation Straight 09/15/2022 10 :30 AM EDT Last Filed Vital Signs Vital Sign Reading Time Taken Comments Blood Pressure 113/73 01/17/2025 12:52 PM EST Pulse 65 01/17/2025 12:52 PM EST Temperature 36.7 ??C (98 ??F) 01/17/2025 12:52 PM EST Respiratory Rate 20 01/17/2025 12:52 PM EST Oxygen Saturation 99% 01/17/2025 12:52 PM EST Inhaled Oxygen Concentration - - Weight 56.7 kg (125 lb) 01/17/2025 12:52 PM EST Height 149.9 cm (4' 11 ) 01/17/2025 12:52 PM EST Body Mass Index 25.25 01/17/2025 12:52 PM EST Plan of Treatment Health Maintenance Due Date Last Done Comments Alcohol/Substance Use Screening 2012 Pap Smear 2021 COVID-19 Vaccine ( season) 2024 12/06/2021 Influenza Vaccine (#1) 2024 , 08/08/2019, 12/28/2017, Additional history exists SDOH Screening 01/20/2025 01/21/2024 Depression Screening 01/31/2025 02/01/2024, 02/01/20 Family Planning (PISQ) 01/17/2026 01/17/2025 Tobacco Screening 01/17/2026 01/17/2025 DTaP/Tdap/Td Vaccines (8 - Td or Tdap) 01/31/2034 02/01/2024, 11/08/2011, 09/08/2011, Additional history exists Zoster Vaccines (1 of 2) 2050 RSV Patients and Patients Aged 60 years or older (1 - 1-dose 75+ series) 2075 Hepatitis B Vaccines Completed 01/01/2001, 2000, 2000 HIB Vaccines Completed 08/29/2002, 12/17, 2000, Additional history exists IPV Vaccines Completed 06/20/2004, 12/17, 2000, Additional history exists Hepatitis A Vaccines Completed 10/23/2014, 09/08/20 11 Pneumococcal Vaccine: Pediatrics (0 to 5 Years) and At-Risk Patients (6 to 49) Years) Aged Out 12/10/2015 No longer eligible based on patient's age to complete this topic HPV Vaccines Completed 09/11/2016, 11/17, 10/23/2014, Additional history exists Meningococcal Vaccine Completed 09/11/2016, 011 HIV Screening Completed 02/01/2024 Hepatitis C Screening Completed 02/01/2024 RSV under 20 months Aged Out No longe r eligible based on patient's age to complete this topic Rotavirus Vaccines Aged Out No longer eligible based on patient's age to complete this topic Procedures Procedure Name Priority Date/Time Associated Diagnosis Comments US PELVIS COMPLETE Urgent 02/15/2025 1: 36 PM EDT HEPATITIS C AB W/REFL TO HCV RNA, QN, PCR Routine 02/01/2024 10:21 AM EDT Routine screening for STI (sexually transmitted infection) HIV 1/2 ANTIGEN/ANTIBODY, FOURTH GENERATION W/RFL Routine 02/01/2024 10:21 AM EDT Routine screening for STI (sexually transmitted infection) from Last 3 Months or Most Recently Relevant to Health Maintenance Results * Us Pelvis complete (02/15/2025 1:36 PM EDT) Anatomical Region Laterality Modality Pelvis Ultrasound 02/15/2025 1:36 PM EDT Narrative 02/15/2025 2:14 PM EDT ? [facility] ?[address] ?[place] [address] ? Ultrasound Report ? Signed ? Patient: Adriane Rigo,Clara ?MR ?? #: [id number] ? : 2000 ?Acct:[id number] ? Age/Sex: 24 / F ?ADM Date: 04/02/25 ? Loc: HO.US ? Attending Dr: Parisa Cortez CNM ? Ordering Physician: PARISA CORTEZ CNM ?? Date of Service: 02/15/25 ?? Procedure(s): US pelvic complete ?? Accession Number(s): [id number] ? cc: PARISA CORTEZ CNM ? EXAMINATION: ??US PELVIS ? HISTORY: oligomenorrhea ? COMPARISON: There are no prior studies for comparison. ? TECHNIQUE: ? Transabdominal real-time 2D berg-scale ultrasound was performed. ??The ?? patient declined endovaginal examination. ? FINDINGS: ? Uterus: ??The uterus is normal in size, measuring 7.3 x 3.1 x 3.6 cm. ? Myometrium has a normal echotexture. ??No fibroids are identified. ? Endometrium: ??The endometrial stripe measures 5 mm in thickness. ? Right ovary: ??The right ovary measures 2.7 x 2.2 x 1.9 cm. ??The right ?? ovary is normal in size and echotexture. ? Left ovary: ?? The left ovary measures 3.2 x 1.8 x 2.4 cm. ??The left ?? ovary is normal in size and echotexture. ? Pelvic fluid: none. ? US/US pelvic complete ?? IMPRESSION: ?? Unremarkable pelvic ultrasound. ? Electronically signed by: ??Antony Pete MD ??02/15/2025 02:11 PM EDT ? Dictated By: ?Antony Pete MD ? Signed By: ?<Electronically signed by Antony Pete MD in OV> ?02/15/25 1411 ? DD/ 1336 ? TD/TT: 02/15/25 1350 ? Shoe Associate: ? Procedure Note Mulu Portillo - 02/15/[address] [address] Ultrasound Report Signed Patient: Clara Cordero #: [id number] : 2000Acct:[id number] Age/Sex: 24 / FADM Date: 02/15/25 Loc: HO.US Attending Dr: Parisa Cortez CNM Ordering Physician: PARISA CORTEZ CNM Date of Service: 02/15/25 Procedure(s): US pelvic complete Accession Number(s): [id number] cc: PARISA CORTEZ CNM EXAMINATION: US PELVIS HISTORY: oligomenorrhea COMPARISON: There are no prior studies for comparison. TECHNIQUE: Transabdominal real-time 2D berg-scale ultrasound was performed. The patient declined endovaginal examination. FINDINGS: Uterus: The uterus is normal in size, measuring 7.3 x 3.1 x 3.6 cm. Myometrium has a normal echotexture. No fibroids are identified. Endometrium: The endometrial stripe measures 5 mm in thickness. Right ovary: The right ovary measures 2.7 x 2.2 x 1.9 cm. The right ovary is normal in size and echotexture. Left ovary: The left ovary measures 3.2 x 1.8 x 2.4 cm. The left ovary is normal in size and echotexture. Pelvic fluid: none. US/US pelvic complete IMPRESSION: Unremarkable pelvic ultrasound. Electronically signed by: Antony Pete MD 02/15/2025 02:11 PM EDT RP Dictated By: Antony Pete MD Signed By: <Electronically signed by Antony Pete MD in OV> 02/15/25 1411 DD/ 1336 TD/TT: 02/15/25 1350 Shoe Associate: us Parisa Cortez CNM IMG US PROCEDURES Final R esult * Hepatitis C Antibody with Reflex to HCV, RNA, Quantitative, Real-Time PCR (02/01/2024 10:21 AM EDT) Hepatitis C Antibody Nonreactive Nonreactive [facility] Comment:Antibodies to HCV no t detected; does not exclude early acuteHCV infection. Blood Venous blood specimen / Unknown 02/01/2024 10:21 AM EDT 02/01/2024 1:10 PM EDT us Keyona Orozco MD LAB BLOOD ORDERABLES Final Resul t Performing Organization Address [facility] Co de Phone Number [facility] [address] [place] [address] [phone] * HIV-1/2 Antigen and Antibodies, Fourth Generation, with Reflexes (02/01/2024 10:21 AM EDT) [facility] HIV AB/AG Nonreactive Nonreactive [facility] Comment:HIV-1 p24 Ag and/or HIV-1/HIV-2 Ab not detected.A test result that is nonreactive does not exclude thepossibility of exposure to or infection with HIV-1 and/orHIV-2. Nonreactive results in this assay for individualswith prior exposure to HIV-1 and/or HIV-2 may be due toantigen and antibody levels that are below the limit ofdetection of this assay.The [facility] HIV Ag/Ab Combo assay result andsupplemental assay results should be interpreted inconjunction with the patient's clinical presentation,history and other laboratory results. If the results areinconsistent with clinical evidence, additional testing issuggested to confirm the result. Blood Venous blood specimen / Unknown 02/01/2024 10:21 AM EDT 02/01/2024 1:10 PM EDT us Keyona Orozco MD LAB BLOOD ORDERABLES Final Resul t Performing Organization Address City/[facility]/ZIP Co de Phone Number [facility] [address] [place] [address] [phone] from Last 3 Months or Most Recently Relevant to Health Maintenance Insurance HSN FULL Care Teams Ammonia Print Operator Relationship Specialty Start Date End Date Keyona Orozco MD [address] [place] [phone] PCP - General Family Medicine 02/01/24
--- OUTSIDE RECORDS SUMMARY | 2025-02-15 15:54 | XMS_ITS | Encounter Summary ---
Author Organization [employer] Address [address] [place] [address] Care Team Providers Care Chick Sexer Name Role Phone Keyona Orozco MD Primary Care Provider [phone] Reason for Visit * Reason Onset Date Comments Nurse Triage 02/05/2024 Encounter Details Date Type Department Care Team ([facility] st Contact Info) Description 02/05/2024 Telephone [facility] [address] [place], [place] [phone] Keyona Orozco MD [address] [place], [place] [phone] Nurse Triage Social History Tobacco Use Types Packs/Day Years Used Date Smoking Tobacco: Never Smokeless Tobacco: Never Alcohol Use Standard Drinks/Week Comments Never 0 [...] Patient Health Questionnaire-2 Score 1 02/01/2024 Comments Unknown Sex and Gender Information Value Date Recorded Sex Assigned at Female 09/15/2022 10:30 AM EDT Legal Sex Female 10:30 AM EDT Gender Identity Female 09/15/2022 10:30 AM EDT Sexual Orientation Straight 09/15/2022 10 :30 AM EDT documented as of this encounter Miscellaneous Notes * Telephone Encounter - Joleen Benitez RN - 02/08/2024 4:44 PM EDT Images from the original note were not included. MD Kassie Marina [facility] Team Nurses Caller: Unspecified (3 days ago, 11:44 AM) Lab result did not show abnormality. Sometimes people who are underweight (low fat tissue) have irregular menstruation. I am sending a pill since lab was normal and making a referral to PRODUCT TEST SPECIALIST. I will also order US. Please inform patient. Thank you. TC placed to patient regarding above message. Explained above message from Dr. Orozco and patient expressed understanding. Offered to call patient back with milk pasteurizer line to discuss more if she had more questions. She said she would appreciate this. TC placed again to patient via [employer], and patient states that she is going to pick upthe oral contraceptives and try them and that she will await calls to schedule the US and appointment with PRODUCT TEST SPECIALIST. States that she has always been underweight and used to weigh 85 pounds and gaining weight has not regulated her period so far. Asked patient to please call us with any needs or concerns.Patient expressed understanding. No other questions or concerns at this time. Routing note to PCP so she is aware. * Telephone Encounter - Alvina Aldrich LPN - 02/05/2024 11:45 AM EDT Triage call returned to patient with Priccut Harness Installer [id number]. Patient reports difficulties with menses as discussed with new PCP last week. Again this month is having symptoms like she is going toget her period but then has not. Has pelvic cramps, breast tenderness and fatigue. Is at work at present. Patient reports that PCP discussed use of Oral BC to regulate menses. Patient was seeking referral as documented earlier for CONTROL OFFICER MANAGER for care for abnormal menses. LMP 11/23/23 none in Dec or January, all labs documented 02/01/24 indicate no . PCP per note to follow for PRODUCT TEST SPECIALIST concerns. Patient is not taking any OTC has none and needs RX for insurance coverage. Team tasked to update available provider and follow with patient. Reviewed with patient home care recommendations, reasons to callback and symptoms that require immediate evaluation in UC or ER. Pt verbalized understanding and agrees. Protocol Used: Pelvic Pain - Female (Adult) Protocol-Based Disposition: See in Office or Video Visit within 2 Weeks Override (Final) Disposition: Discuss with PCP and Callback by Nurse Today Override Reason: Already seen and questions Positive Triage Questions: * Mild to Moderate pelvic pain that occurs in the middle of menstrual cycle (2 weeks after first day of period) AND recurring (occurs frequently) * Pelvic pain is a chronic symptom (recurrent or ongoing AND present > 4 weeks) * All higher-acuity triage questions were negative Care Advice Discussed: * Rest * Use Heat * Pain Medicines * Reasons To Call Back - Severe pain lasts over 1 hour - Constant pain lasts over 2 hours - Intermittent pain (e.g., comes and goes, cramps) lasts over 48 hours - You become worse * Telephone Encounter - Neo Garcia - 02/05/2024 11:44 AM EDT Symptom: Abdominal Pain - Female - Not Outcome: Schedule an urgent appointment (within 4 hours) or talk to a nurse or provider soon Reason: Getting worse The caller accepted this outcome documented in this encounter Plan of Treatment Not on file documented as of this encounter Visit Diagnoses Not on filedocumented in this encounter Additional Health Concerns Assessment Noted Time PHQ-9 Depression Total Score: 2 03/18/20 24 10:18 AM EDT documented as of this encounter Care Teams Chick Sexer Relationship Specialty Start Date End Date Keyona Orozco MD [address] [place] [phone] PCP - General Family Medicine 02/01/24 documented as of this encounter
--- OUTSIDE RECORDS SUMMARY | 2025-02-15 15:54 | XMS_ITS | Encounter Summary ---
Author Organization [employer] Address [address] [place] [address] Care Team Providers Care Studio Operations Manager Name Role Phone Keyona Orozco MD Primary Care Provider [phone] Encounter Details Date Type Department Care Team (Late st Contact Info) Description 12/21/2024 Telephone [facility] [address] [place], [place] [phone] Keyona Orozco MD [address] [place], [place] [phone] Social History Tobacco Use Types Packs/Day Years [...] AM EDT documented as of this encounter Plan of Treatment Not on file documented as of this encounter Visit Diagnoses Not on filedocumented in this encounter Additional Health Concerns Assessment Noted Time PHQ-9 Depression Total Score: 2 02/01/20 24 10:18 AM EDT documented as of this encounter Care Teams Studio Operations Manager Relationship Specialty Start Date End Date Keyona Orozco MD [address] [place] [address] PCP - General Family Medicine 02/01/24 documented as of this encounter
--- OUTSIDE RECORDS SUMMARY | 2025-02-15 15:54 | XMS_ITS | Encounter Summary ---
Author Organization [employer] Address [address] [facility] [place] [address] Care Team Providers Care Stock Holder Name Role Phone Keyona Orozco MD Primary Care Provider [phone] Encounter Details Date Type Department Care Team (Late st Contact Info) Description 02/10/2025 Telephone [facility] [address] [place], [place] [phone] Keyona Orozco MD [address] [place], [place] [phone] Social History Tobacco Use Types Packs/Day Years [...] encounter Miscellaneous Notes * Telephone Encounter - Medina Boyle RN - 02/15/2025 3:45 PM EDT TC placed to pt via [email or web address] resilient tile installer (Malik ID#[id number]) to inform and advise of below provider message.Pt verbalized understanding of pelvic ultrasound result and to continue on oral contraceptive pill.Pt confused on if she has PCOS or not. Pt states the doctor told her she had PCOS. Message forwarded to provider to review and advise. ----- Message from Parisa Sue sent at 02/15/2025 3:15 PM EDT ----- Please let Clara know her pelvic ultrasound was normal. Continue oral contraceptive pill for cycle regulation, followup as needed. Thanks! documented in this encounter Plan of Treatment Not on file documented as of this encounter Visit Diagnoses Not on filedocumented in this encounter Additional Health Concerns Assessment Noted Time PHQ-9 Depression Total Score: 2 02/01/20 24 10:18 AM EDT documented as of this encounter Care Teams Stock Holder Relationship Specialty Start Date End Date Keyona Orozco MD [address] [place] [address] PCP - General Family Medicine 02/01/24 documented as of this encounter
--- OUTSIDE RECORDS SUMMARY | 2025-02-15 15:54 | XMS_ITS | Encounter Summary ---
Author Organization [employer] Address [address] [address] [facility] [address] [facility] [address] [place] [address] Care Team Providers Care Swedish Masseuse Name Role Phone Keyona Orozco MD Primary Care Provider [phone] Reason for Visit * Reason Onset Date Comments Referral 02/09/2025 Encounter Details Date Type Department Care Team ([facility] st Contact Info) Description 02/09/2025 Telephone [facility] [address] [place], [place] [phone] Keyona Orozco MD [address] [place], [place] [phone] Referral Social History Tobacco Use Types Packs/Day Years [...] encounter Miscellaneous Notes * Telephone Encounter - Cydney Hameed RN - 02/10/2025 1:59 PM EDT TC placed to pt to inform that per referral notes, the Pelvic US order was refaxed to [facility] on 02/10/2025. The pt was advised that she will be contacted to schedule this appt. Pt stated understanding and will call back if there are any future questions or concerns. * Telephone Encounter - Tyrone Mcconnell - 02/10/2025 1:49 PM EDT Tc from pt regarding prior message. * Telephone Encounter - Clara Gama - 02/09/2025 2:29 PM EDT Tc from pt regarding prior message. * Telephone Encounter - Oscar Sierra - 02/09/2025 1:55 PM EDT Tc from pt requesting Status of Referral for Ultra sound. Pt states that she called the [place] she was referred too and they old her that they didn't receive any referral. Contact pt at [phone] documented in this encounter Plan of Treatment Not on file documented as of this encounter Visit Diagnoses Not on filedocumented in this encounter Additional Health Concerns Assessment Noted Time PHQ-9 Depression Total Score: 2 02/01/20 24 10:18 AM EDT documented as of this encounter Care Teams Swedish Masseuse Relationship Specialty Start Date End Date Keyona Orozco MD [address] [place] [address] PCP - General Family Medicine 02/01/24 documented as of this encounter
== END 2025-02-15 13:18 | disposition home or self-care (01) ==
LOC: HO.US 13:17
PROVIDERS: Visit Provider Advanced Practice Midwife
DX: N91.5 Oligomenorrhea, unspecified (principal)
CPT/HCPCS: 76856